=== PATIENT | female | born 1995 | race Caucasian/White ===

== ENCOUNTER 2019-08-24 09:57 | Observation (INO) ==
[2019-08-24] MEDS ORDERED: Ondansetron 4 MG/2 ML VIAL IVP PRN (14:01)
[2019-08-24] MEDS ORDERED: Naloxone 0.4 MG/ML INJ IVP PRN (14:01)
[2019-08-24] MEDS ORDERED: Acetaminophen 325 MG TABLET PO PRN (14:01)
[2019-08-24] MEDS ORDERED: Isovue-370 500 ML BOTTLE IVP ONE (14:07)
[2019-08-24] MEDS ORDERED: Ketorolac 15 MG/ML VIAL IVP PRN (14:08)
[2019-08-24] MEDS: 0.9 % Sodium Chloride 1,000 ML IVC SCH (17:15)
[2019-08-24] MEDS: Piperacillin/Tazobactam 3.375 GM in 0.9 % Sodium Chloride Mini Bag 100 ML IVPB SCH (17:15)
[2019-08-24] MEDS: *HR* Heparin 5,000 UNIT/ML VIAL SQ SCH (17:16)
[2019-08-24] MEDS: Nicotine 14 MG PATCH.TD24 TD SCH (18:28)
[2019-08-25] MEDS: Piperacillin/Tazobactam 3.375 GM in 0.9 % Sodium Chloride Mini Bag 100 ML IVPB SCH (00:37)
[2019-08-25] MEDS: 0.9 % Sodium Chloride 1,000 ML IVC SCH (04:58)
[2019-08-25] MEDS: *HR* Heparin 5,000 UNIT/ML VIAL SQ SCH ×2 (05:02→18:03)
[2019-08-25 06:57] LABS: Basophils % 0.4 %; Eosinophils # 0.1 K/mcL (0.0-0.6); Eosinophils % 0.9 %; Hematocrit 31.2 % (35.3-44.9); Hemoglobin 9.7 g/dL (11.5-15.4); Immature Granulocytes % 0.3 % (0-4); Lymphocytes # 1.6 K/mcL (0.6-4.6); Lymphocytes % 15.1 %; Mean Corpuscular HGB Conc 31.1 g/dL (31.6-35.5); Mean Corpuscular Hemoglobin 27.2 pg (28.0-33.3); Mean Corpuscular Volume 87.4 fL (83.0-100.0); Monocytes # 0.7 K/mcL (0.0-1.3); Monocytes % 6.7 %; Neutrophils # 8.2 K/mcL (1.6-8.9); Platelet Count 286 K/mcL (140-400); Red Blood Count 3.57 M/mcL (3.82-4.97); Red Cell Distribution Width 13.2 % (11.5-14.5); Segmented Neutrophils % 76.6 %; White Blood Count 10.7 K/mcL (4.3-11.1)
[2019-08-25 07:27] LABS: BUN/Creatinine Ratio 11 (6-26); Blood Urea Nitrogen 5 mg/dL (6-20); Calcium 8.7 mg/dL (8.6-10.3); Carbon Dioxide 22 mEq/L (23-29); Chloride 108 mEq/L (98-107); Glucose 88 mg/dL (70-105); Osmolality,Calculated 285 (280-300); Potassium 3.9 mEq/L (3.5-5.1); Sodium 139 mEq/L (136-145); eGFR For African Americans > 60 (> 60); eGFR For Non-African Americans > 60 (> 60)
[2019-08-25] MEDS: Cefepime HCl 1,000 MG in Water for inj. (sterile) 10 ML IVP SCH ×2 (08:55→18:02)
[2019-08-25] MEDS: Nicotine 14 MG PATCH.TD24 TD SCH (08:56)
[2019-08-25] MEDS: MetroNIDAZOLE 500 MG/100 ML 500 MG/100 ML BAG IVPB SCH ×2 (09:55→18:02)
[2019-08-25] MEDS ORDERED: *HR* Midazolam HCl 2 MG/2 ML VIAL ONE (23:16)
[2019-08-25] MEDS ORDERED: *HR* FentaNYL (PF) 100 MCG/2 ML VIAL ONE (23:16)
[2019-08-25] MEDS ORDERED: *HR* Propofol 200 MG/20 ML VIAL IVP ONE (23:16)
[2019-08-25] MEDS ORDERED: *HR* OxyCODONE Immed Rel 5 MG TABLET PO PRN (23:21)
[2019-08-25] MEDS ORDERED: Dexamethasone 4 MG/ML VIAL ONE (23:29)
[2019-08-25] MEDS ORDERED: Ondansetron 4 MG/2 ML VIAL ONE (23:29)
[2019-08-25] MEDS ORDERED: Lidocaine -MPF 2% 2 ML VIAL ONE (23:29)
[2019-08-26] MEDS: *HR* HYDROmorphone (PF) 1 MG/ML SYRINGE IVP PRN ×4 (00:35→00:55)
[2019-08-26] MEDS ORDERED: Naloxone 0.4 MG/ML INJ IVP PRN (01:36)
[2019-08-26] MEDS ORDERED: Ondansetron 4 MG/2 ML VIAL IVP PRN (01:36)
[2019-08-26] MEDS ORDERED: Ketorolac 15 MG/ML VIAL IVP PRN (01:36)
[2019-08-26] MEDS ORDERED: Acetaminophen 325 MG TABLET PO PRN (01:36)
[2019-08-26] MEDS: Cefepime HCl 1,000 MG in Water for inj. (sterile) 10 ML IVP SCH ×4 (02:45→17:45)
[2019-08-26] MEDS: MetroNIDAZOLE 500 MG/100 ML 500 MG/100 ML BAG IVPB SCH ×3 (02:45→17:45)
[2019-08-26] MEDS: *HR* Heparin 5,000 UNIT/ML VIAL SQ SCH ×2 (05:14→17:46)
[2019-08-26 06:26] LABS: Hematocrit 37.1 % (35.3-44.9); Mean Corpuscular HGB Conc 31.3 g/dL (31.6-35.5); Mean Corpuscular Hemoglobin 27.4 pg (28.0-33.3); Mean Corpuscular Volume 87.7 fL (83.0-100.0); Mean Platelet Volume 10.1 fL (9.4-12.4); Platelet Count 326 K/mcL (140-400); Red Blood Count 4.23 M/mcL (3.82-4.97); Red Cell Distribution Width 13.2 % (11.5-14.5); White Blood Count 9.3 K/mcL (4.3-11.1)
[2019-08-26 06:27] LABS: Hemoglobin 11.6 g/dL (11.5-15.4)
[2019-08-26 06:47] LABS: BUN/Creatinine Ratio 19 (6-26); Blood Urea Nitrogen 13 mg/dL (6-20); Calcium 8.5 mg/dL (8.6-10.3); Carbon Dioxide 23 mEq/L (23-29); Chloride 102 mEq/L (98-107); Glucose 332 mg/dL (70-105); Osmolality,Calculated 293 (280-300); Potassium 3.8 mEq/L (3.5-5.1); Sodium 135 mEq/L (136-145); eGFR For African Americans > 60 (> 60); eGFR For Non-African Americans > 60 (> 60)
[2019-08-26] MEDS: Nicotine 14 MG PATCH.TD24 TD SCH ×2 (09:49→09:51)
[2019-08-27] MEDS: MetroNIDAZOLE 500 MG/100 ML 500 MG/100 ML BAG IVPB SCH ×2 (00:20→09:24)
[2019-08-27] MEDS: Cefepime HCl 1,000 MG in Water for inj. (sterile) 10 ML IVP SCH ×2 (02:12→09:25)
[2019-08-27] MEDS: *HR* Heparin 5,000 UNIT/ML VIAL SQ SCH (05:00)
[2019-08-27 07:26] VITALS: BP 126/83
[2019-08-27] MEDS ORDERED: Aminoglycoside Consult 1 EACH MC ONE (11:01)
== END 2019-08-27 11:02 | disposition home or self-care (01) ==
LOC: 3ANU → SUATTDRO 12:24
PROVIDERS: ADMIT Internal Medicine; ATTEND Internal Medicine